=== PATIENT | female | born 1950 | race Asian ===

== ENCOUNTER 2017-04-01 23:31 | Inpatient (IN) | payer MEDICARE, MEDICAID ==
--- NOTE | 2017-04-02 00:23 | ED Physician Chart ---
ED Chief Complaint/HPI - Patient Information Date Seen:: 04/02/17 Time Seen:: 00:00 Chief Complaint:: `chest pain History of Present Illness:: About one hour ago patient developed substernal and left-sided sensation of heaviness. The discomfort was a 7-8 out of 10. The discomfort did not radiate. She felt diaphoretic. Patient was hospitalized March 19 to the for congestive heart failure at [facility] Historian:: Patient ED Review of Systems - Review of Systems General/Constitutional: No fever, No chills Skin: No skin lesions Head: No headache Eyes: No loss of vision ENT: No earache Neck: No neck pain Cardio Vascular: Chest pain Pulmonary: SOB, No SOB GI: No nausea, No vomiting, No diarrhea G/U: No dysuria Musculoskeletal: No bone or joint pain Endocrine: No polyuria Psychiatric: No prior psych history Hematopoietic: No bruising Allergic/Immuno: No urticaria Neurological: No syncope, No focal symptoms Family Medical History - Family Member Father Hx Family Cancer: Yes ED Labs/Radiology/EKG Results - Lab Results Results: Laboratory Results - last 24 hr 04/02/17 04/02/17 04/02/17 00:24 00:24 00:24 WBC 7.5 RBC 3.89 Hgb 11.7 L Hct 34.9 L MCV 89.8 MCH 30.0 MCHC Differential 33.4 RDW 13.2 Plt Count 225 MPV 6.7 Neutrophils % 48.6 Lymphocytes % 28.5 Monocytes % 10.2 H Eosinophils % 12.0 H Basophils % 0.7 Sodium 135 L Potassium 4.1 Chloride 100 Carbon Dioxide 26.9 Anion Gap 12.2 BUN 28 H Creatinine 2.1 H Est GFR ( Amer) 30.1 Est GFR (Non-Af Amer) 24.9 BUN/Creatinine Ratio 13.3 Glucose 367 H Calcium 9.3 Magnesium 1.8 L Troponin I B-Natriuretic Peptide 102.0 H 04/02/17 00:24 WBC RBC Hgb Hct MCV MCH MCHC Differential RDW Plt Count MPV Neutrophils % Lymphocytes % Monocytes % Eosinophils % Basophils % Sodium Potassium Chloride Carbon Dioxide Anion Gap BUN Creatinine Est GFR ( Amer) Est GFR (Non-Af Amer) BUN/Creatinine Ratio Glucose Calcium Magnesium Troponin I 0.01 B-Natriuretic Peptide - Radiology Results Results: Chest x-ray showed cardiomegaly and prominence of the aortic arch but was otherwise negative - EKG Interpretations Rate & Rhythm: sinus tachycardia with a rate of 115 [place]: normal axis ED Assessment - Assessment General Assessment: At 0110 patient has no chest pain does have a headache ED Septic Shock - . Is Septic Shock (SBP<90, OR Lactate>4 mmol\L) present?: No ED Reassessment (Disposition) - Reassessment Reassessment Condition:: Improved - Diagnosis Diagnosis:: chest pain; renal insufficiency; history of CHF - Patient Disposition Admitted to:: Telemetry Spoke to:: Aristides Zayas Admitting Medical Physician:: Aristides Zayas Condition at Disposition:: Stable, Improved
[2017-04-02 00:32] LABS: % BASOPHILS 0.7 % (0.0-2.0); % LYMPHOCYTES 28.5 % (20.0-50.0); % MONOCYTES 10.2 % (2.0-10.0); % NEUTROPHILS 48.6 % (40.0-80.0); BASOPHILE ABSOLUTE 0.1 Th/cumm (0-0.2); EOSINOPHILE ABSOLUTE 0.9 Th/cmm (0.1-0.4); HEMATOCRIT 34.9 % (41.0-60); HEMOGLOBIN 11.7 gm/dL (12-16); LYMPHOCYTE ABSOLUTE 2.1 Th/cmm (1.5-3.0); MEAN CELL VOLUME 89.8 fl (81-100); MEAN CORPUSCULAR HGB CONC 33.4 pg (28.0-36.0); MEAN PLATELET VOLUME 6.7 fl; MONOCYTE ABSOLUTE 0.8 Th/cmm (0.3-1.0); NEUTROPHILE ABSOLUTE 3.6 Th/cmm (1.8-8.0); PLATELET COUNT 225 Th/cmm (150-400); RED BLOOD COUNT 3.89 Mil/cmm (3.80-5.20); RED CELL DISTRIBUTION WIDTH 13.2 % (11.5-20.0); WHITE BLOOD COUNT 7.5 Th/cmm (4.8-10.8)
[2017-04-02 00:46] LABS: ANION GAP 12.2 (7.0-16.0); CALCIUM SERUM 9.3 mg/dL (8.6-10.3); CARBON DIOXIDE 26.9 mEq/L (21.0-31.0); CREATININE - SERUM 2.1 mg/dL (0.6-1.2); GFR AFRICAN-AMERICAN 30.1 ml/min (>90); GFR NON AFRICAN-AMERICAN 24.9 ml/min; MAGNESIUM 1.8 mg/dL (1.9-2.7); POTASSIUM SERUM 4.1 mEq/L (3.5-5.1)
--- NOTE | 2017-04-02 08:02 | Diagnostic Imaging Report ---
CHEST X-RAY: AP view INDICATION: Chest pain COMPARISON: None FINDINGS: Chronic lung changes are seen with left basal increased markings. No focal consolidation or effusions. Heart size is at the upper limits of normal. Atherosclerosis is noted. Degenerative changes of spine are noted. There is evidence of prior cholecystectomy. There is calcific tendinitis of the left shoulder. IMPRESSION: Chronic lung changes and increased left basal lung markings probably due to atelectasis. Underlying infiltrate of the left retrocardiac region is less likely. Please correlate clinically. Atherosclerotic vascular disease.
== END 2017-04-02 03:35 | disposition left against medical advice (07) | DRG 313 ==
LOC: ER 23:31 → TELE 04-02 01:50
PROVIDERS: ADMIT Internal Medicine; ATTEND Internal Medicine
DX: R07.89 Other chest pain (principal); I25.10 Atherosclerotic heart disease of native coronary artery without angina pectoris; I50.9 Heart failure, unspecified; N28.9 Disorder of kidney and ureter, unspecified; Z53.21 Procedure and treatment not carried out due to patient leaving prior to being seen by health care provider; R51 Headache
CPT/HCPCS: 36415-UA; 71010-TC; 80048-TC; 83036-90; 83735-TC; 83880-TC; 84484-TC; 85025-TC; 93005